=== PATIENT | male | born 1975 | race Two or more races ===

== ENCOUNTER 2017-06-20 20:10 | Emergency (ER) | payer MEDICAID ==
[~2017-06-20] VITALS: Ht 170.2 cm; Wt 83.9 kg
[2017-06-20] MEDS ORDERED: NKM (20:24)
[2017-06-20 20:57] VITALS: BP 118/88
[2017-06-20] MEDS ORDERED: IBUPROFEN600 MG ORAL (21:28)
[2017-06-20 22:00] VITALS: BP 116/88
[2017-06-20 22:01] VITALS: BP 116/88
--- NOTE | 2017-06-20 22:59 | Emergency Room Report ---
History of Present Illness General Chief Complaint: Upper Extremity Injury Source: Patient Present Illness HPI Patient is a 42-year-old male who presented after increased left upper extremity pain and discomfort. 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 Patient was noted to have increased pain to his left wrist as well as his left forearm to the ulnar aspect. The patient states this is worse on the dorsal side. He denies recent trauma. He denies any fever. He denies any prior giles or definite injury. Allergies: Coded Allergies: No Known Allergies (Unverified , 06/20/17) Patient History Past Medical History: see triage record Reviewed Nursing Documentation: PMH: Agreed; PSxH: Agreed Nursing Documentation-PMH Past Medical History: No Stated History Review of Systems All Other Systems: negative except mentioned in HPI Physical Exam Vital Signs Date Time Temp Pulse Resp B/P (MAP) Pulse Ox O2 Delivery O2 Flow Rate FiO2 06/20/17 20:18 98.2 85 16 123/85 97 Room Air 98.2 General Appearance: well appearing, no apparent distress, alert, GCS 15 Head: normocephalic, atraumatic ENT: hearing grossly normal, normal voice Neck: full range of motion, supple Respiratory: no respiratory distress, speaking full sentences Cardiovascular #1: regular rate, rhythm Gastrointestinal: normal inspection, normal bowel sounds, non tender, soft Musculoskeletal: swelling - proximal to left ulnar styloid, no erythema Neurologic: normal gait Psychiatric: mood/affect normal Skin: no rash Medical Decision Making Diagnostic Impression: Primary Impression: Tendonitis ER Course Patient presented for wrist pain. Differential diagnosis included fracture, dislocation, scapphoid fracture, sprain, ganglion cyst, septic joint , arthritis, abscess among others. Wrist Xray was ordered. The x-ray of the left wrist 3 views interpreted by me showed normal bony alignment without evident fracture. The patient was placed in a preform splint. Patient was given ibuprofen for pain. He is advised to remain off of work for 2 days. The patient is advised to recheck with primary care physician in one to 2 days for reexamination. Last Vital Signs Date Time Temp Pulse Resp B/P (MAP) Pulse Ox O2 Delivery O2 Flow Rate FiO2 06/20/17 22:01 98.2 80 18 116/88 97 Room Air 98.2 Status: improved Disposition: HOME, SELF-CARE Condition: Improved Scripts Ibuprofen* (MOTRIN*) 600 Mg Tablet 600 MG ORAL Q8H PRN for For Pain, #30 TAB 0 Refills Prov: Jason Aguilar 06/20/17 Patient Instructions: Jason Burks Jun 20, 2017 22:59
--- NOTE | 2017-06-21 10:08 | Diagnostic Imaging Report ---
Clinical Indication:Wrist pain Technique: 3 views of the left wrist Comparison: None Findings: No acute fractures. No dislocations. The joint spaces are preserved Impression: Negative
== END 2017-06-20 22:02 | disposition home or self-care (01) ==
LOC: EMR 20:37
DX: M77.9 Enthesopathy, unspecified (principal)
CPT/HCPCS: 99284

== ENCOUNTER 2017-08-30 20:37 | Emergency (ER) | payer MEDICAID ==
[~2017-08-30] VITALS: Ht 170.2 cm; Wt 82.1 kg
[~2017-08-30 20:37] MED LIST: IBUPROFEN600 MG ORAL; NKM
--- NOTE | 2017-08-30 20:55 | Emergency Room Report ---
History of Present Illness General Chief Complaint: Lower Extremity Injury Source: Patient Present Illness HPI Patient is a 42-year-old male who presented after increased the pain to his right great toe. The patient had onset of symptoms for approximately 83 days. Patient reports having increased pain with ambulation. He denies recent trauma. He states that he does not have any prior medical history. Pain is sharp in nature. It was worse with ambulation. Allergies: Coded Allergies: No Known Allergies (Unverified , 06/20/17) Patient History Past Medical History: see triage record Reviewed Nursing Documentation: PMH: Agreed; PSxH: Agreed Nursing Documentation-PMH Past Medical History: No Stated History Review of Systems All Other Systems: negative except mentioned in HPI Physical Exam Vital Signs Date Time Temp Pulse Resp B/P (MAP) Pulse Ox O2 Delivery O2 Flow Rate FiO2 08/30/17 20:39 97.8 77 16 122/81 97 Room Air 97.9 General Appearance: well appearing, no apparent distress, alert, GCS 15 Head: normocephalic, atraumatic ENT: hearing grossly normal, normal voice Neck: full range of motion, supple Respiratory: no respiratory distress, speaking full sentences Musculoskeletal: no calf tenderness Neurologic: normal inspection, alert, oriented x3, responsive, on air announcer III-XII nml as tested, normal gait Psychiatric: mood/affect normal Skin: other - right great toe with minimal swelling to medial aspect Medical Decision Making Diagnostic Impression: Primary Impression: Ingrown toenail of right foot with infection Additional Impression: Tinea unguium ER Course Patient presented for toe swelling. Differential diagnosis included was not limited to osteomyelitis, ingrown toenail, cellulitis, abscess among others. Patient has a benign exam and does not appear to require any further imaging or laboratory testing at this time. The patient appears to have some underlying fungal infection. The patient was started on oral antibiotics. The patient is advised podiatry follow-up for reevaluation in the next one to 2 days. Last Vital Signs Date Time Temp Pulse Resp B/P (MAP) Pulse Ox O2 Delivery O2 Flow Rate FiO2 08/30/17 20:39 97.8 77 16 122/81 97 Room Air 97.9 Status: improved Disposition: HOME, SELF-CARE Condition: Stable Jason Aguilar MD Aug 30, 2017 20:55
[2017-08-30] MEDS ORDERED: CEPHALEXIN500 MG ORAL (20:57)
[2017-08-30] MEDS ORDERED: CLOTRIMAZOLE15 GM TOPIC (20:57)
[2017-08-30 21:15] VITALS: BP 122/81
== END 2017-08-30 21:15 | disposition home or self-care (01) ==
LOC: EMR 20:52
DX: L60.0 Ingrowing nail (principal); B35.1 Tinea unguium
CPT/HCPCS: 99283

== ENCOUNTER 2018-02-17 17:39 | Emergency (ER) | payer MEDICAID ==
[~2018-02-17] VITALS: Ht 170.2 cm; Wt 81.6 kg
[~2018-02-17 17:39] MED LIST changes: +CEPHALEXIN500 MG ORAL; +CLOTRIMAZOLE15 GM TOPIC
[2018-02-17 18:10] VITALS: BP 122/65
[2018-02-17 18:16] LABS: BASOPHILS % (AUTO) 1.3 % (0.0-2.0); EOSINOPHILS % (AUTO) 2.7 % (0.0-3.0); HEMATOCRIT 45.4 % (42.0-52.0); HEMOGLOBIN 16.2 G/DL (14.2-18.0); LYMPHOCYTES % (AUTO) 27.8 % (20.0-45.0); MEAN CORPUSCULAR VOLUME 86 FL (80-99); MONOCYTES % (AUTO) 10.1 % (1.0-10.0); PLATELET COUNT 272 K/UL (150-450); RED BLOOD COUNT 5.25 M/UL (4.70-6.10); RED CELL DISTRIBUTION WIDTH 11.5 % (11.6-14.8); WHITE BLOOD COUNT 9.5 K/UL (4.8-10.8)
[2018-02-17 18:40] LABS: ANION GAP 12 mmol/L (5-15); BLOOD UREA NITROGEN 11 mg/dL (7-18); CALCIUM 8.5 MG/DL (8.5-10.1); CARBON DIOXIDE 25 MMOL/L (21-32); CHLORIDE 103 MMOL/L (98-107); POTASSIUM 3.3 MMOL/L (3.5-5.1); SODIUM 140 MMOL/L (136-145)
[2018-02-17 18:44] LABS: ALANINE AMINOTRANSFERASE 29 U/L (12-78); ALBUMIN 3.5 G/DL (3.4-5.0); ALBUMIN/GLOBULIN RATIO 0.7 (1.0-2.7); ALKALINE PHOSPHATASE 90 U/L (46-116); ASPARTATE AMINO TRANSFERASE 25 U/L (15-37); BILIRUBIN,TOTAL 0.8 MG/DL (0.2-1.0)
[2018-02-17] MEDS ORDERED: PEPCID AC20 M2 PO (18:52)
[2018-02-17 19:05] VITALS: BP 106/68
[2018-02-17 19:09] VITALS: BP 106/68
--- NOTE | 2018-02-23 06:58 | Emergency Room Report ---
History of Present Illness General Chief Complaint: Abdominal Pain Source: Patient Present Illness HPI Patient presents with complaints of epigastric abdominal pain Some increased nausea denies any vomiting or diarrhea Denies any chest pain or shortness of breath Patient also reported seeing evidence of red blood in his stool Denies any pain with defecation denies any trauma Patient reports he has seen the blood tinge for over the past one to 2 months Allergies: Coded Allergies: No Known Allergies (Unverified , 06/20/17) Patient History Past Medical History: see triage record Pertinent Family History: none Reviewed Nursing Documentation: PMH: Agreed; PSxH: Agreed Nursing Documentation-PMH Past Medical History: No Stated History Review of Systems All Other Systems: negative except mentioned in HPI Physical Exam 99% on room air which is normal Sp02 EP Interpretation: reviewed, normal General Appearance: well appearing, no apparent distress Head: normocephalic, atraumatic Eyes: bilateral eye PERRL, bilateral eye EOMI ENT: hearing grossly normal, normal pharynx, TMs + canals normal, uvula midline Neck: full range of motion, supple, no meningismus, no bony tend Respiratory: lungs clear, normal breath sounds, no rhonchi, no respiratory distress, no retraction, no accessory muscle use Cardiovascular #1: normal peripheral pulses, regular rate, rhythm, no edema, no gallop, no JVD, no murmur Gastrointestinal: normal bowel sounds, non tender, soft, no mass, no organomegaly, non-distended, no guarding, no hernia, no pulsatile mass, no rebound Genitourinary: no CVA tenderness Musculoskeletal: normal inspection Neurologic: oriented x3, responsive, used car make ready worker III-XII nml as tested, motor strength/ tone normal, sensory intact Psychiatric: mood/affect normal Skin: normal color, no rash, warm/dry, palpation normal Lymphatic: normal inspection, no adenopathy Medical Decision Making Diagnostic Impression: Primary Impression: abdominal pain ER Course With the history exam and presentation, multiple differentials considered, including but not limited to appendicitis, gastritis, cholecystitis, diverticulitis Consideration for GI bleed is also noted Patient's blood work however reveals appropriate hemoglobin Patient does not appear to show signs of active hemorrhage Medical exam is showing a soft and benign abdominal exam Patient was encouraged to follow-up with primary doctor for further GI referral and possible colonoscopy as needed CBC normal Chemistry potassium 3.3 minimally low Status: improved Disposition: HOME, SELF-CARE Condition: Improved Scripts Famotidine (PEPCID AC) 20 Mg Tablet 20 MG PO DAILY, #14 TAB Prov: Ute Soto DO 02/17/18 Referrals: NON PHYSICIAN (PCP) Patient Instructions: Abdominal Pain, Adult Additional Instructions: Patient is provided with the discharge instructions notified to follow up with primary doctor in the next 2-3 days otherwise return to the er with any worsening symptoms. Please note that this report is being documented using [employer] technology. This can lead to erroneous entry secondary to incorrect interpretation by the dictating instrument. Ute Soto DO Feb 23, 2018 06:58
== END 2018-02-17 19:09 | disposition home or self-care (01) ==
LOC: EMR 18:05
DX: R10.9 Unspecified abdominal pain (principal)
CPT/HCPCS: 36415; 80053; 83690; 85025; 99284

== ENCOUNTER 2018-04-06 08:16 | Emergency (ER) | payer MEDICAID ==
[~2018-04-06] VITALS: Ht 170.2 cm; Wt 81.6 kg
[~2018-04-06 08:16] MED LIST changes: +PEPCID AC20 M2 PO
[2018-04-06 08:56] VITALS: BP 120/75
[2018-04-06] MEDS ORDERED: TAMIFLU75 MG ORAL (09:00)
[2018-04-06] MEDS ORDERED: IBUPROFEN600 MG ORAL (09:00)
[2018-04-06 09:14] VITALS: BP 120/75
--- NOTE | 2018-04-08 07:04 | Emergency Room Report ---
History of Present Illness General Chief Complaint: Flu Like Symptoms Source: Patient Present Illness HPI Patient presents with reports of body ache chills Feels that he might have the flu Denies any posterior neck pain or photophobia denies any chest pain patient has a mild cough and nasal congestion Denies any vomiting or diarrhea denies any rash Denies any abdominal pain symptoms ongoing for the past 1-2 days Allergies: Coded Allergies: No Known Allergies (Unverified , 06/20/17) Patient History Past Medical History: see triage record Pertinent Family History: none Reviewed Nursing Documentation: PMH: Agreed; PSxH: Agreed Nursing Documentation-PMH Past Medical History: No Stated History Review of Systems All Other Systems: negative except mentioned in HPI Physical Exam Vital Signs Date Time Temp Pulse Resp B/P (MAP) Pulse Ox O2 Delivery O2 Flow Rate FiO2 04/06/18 08:20 98.4 77 18 120/75 98 Room Air Sp02 EP Interpretation: reviewed, normal General Appearance: well appearing, no apparent distress Head: normocephalic, atraumatic Eyes: bilateral eye PERRL, bilateral eye EOMI ENT: hearing grossly normal, normal pharynx, TMs + canals normal, uvula midline Neck: full range of motion, supple, no meningismus, no bony tend Respiratory: lungs clear, normal breath sounds, no rhonchi, no respiratory distress, no retraction, no accessory muscle use Cardiovascular #1: normal peripheral pulses, regular rate, rhythm, no edema, no gallop, no JVD, no murmur Gastrointestinal: normal bowel sounds, non tender, soft, no mass, no organomegaly, non-distended, no guarding, no hernia, no pulsatile mass, no rebound Genitourinary: no CVA tenderness Musculoskeletal: normal inspection Neurologic: oriented x3, responsive, blow molding machine tender III-XII nml as tested, motor strength/ tone normal, sensory intact Psychiatric: mood/affect normal Skin: normal color, no rash, warm/dry, palpation normal Lymphatic: normal inspection, no adenopathy Medical Decision Making Diagnostic Impression: Primary Impression: Influenza-like symptoms ER Course Given the patient's history exam and presentation appears to be consistent with Flulike symptoms Patient does not appear septic or toxic does not appear ill given the duration of symptoms he is appropriate candidate for Tamiflu And will return with any changes Last Vital Signs Date Time Temp Pulse Resp B/P (MAP) Pulse Ox O2 Delivery O2 Flow Rate FiO2 04/06/18 09:14 98.4 77 18 120/75 98 Room Air Status: improved Disposition: HOME, SELF-CARE Condition: Improved Scripts Ibuprofen* (MOTRIN*) 600 Mg Tablet 600 MG ORAL Q8H PRN for For Pain, #20 TAB 0 Refills Prov: Ute Soto DO 04/06/18 Oseltamivir Phosphate (Tamiflu) 75 Mg Capsule 75 MG ORAL TWICE A DAY for 5 Days, CAP Prov: Ute Soto DO 04/06/18 Referrals: NON PHYSICIAN (PCP) Departure Forms: Return to Work Return to Work in (Days): 2 Return to Work Date: Apr 09, 2018 Patient Instructions: Influenza, Adult, [id number] Additional Instructions: Patient is provided with the discharge instructions notified to follow up with primary doctor in the next 2-3 days otherwise return to the er with any worsening symptoms. Please note that this report is being documented using [employer] technology. This can lead to erroneous entry secondary to incorrect interpretation by the dictating instrument. Ute Soto DO Apr 08, 2018 07:04
== END 2018-04-06 09:15 | disposition home or self-care (01) ==
LOC: EMR 08:54
DX: J11.1 Influenza due to unidentified influenza virus with other respiratory manifestations (principal)
CPT/HCPCS: 99282

== ENCOUNTER 2018-05-28 13:27 | Emergency (ER) | payer MEDICAID ==
[~2018-05-28] VITALS: Ht 167.6 cm; Wt 81.6 kg
[~2018-05-28 13:27] MED LIST changes: +TAMIFLU75 MG ORAL
[2018-05-28 13:45] VITALS: BP 134/75
--- NOTE | 2018-05-28 15:03 | Emergency Room Report ---
History of Present Illness General Chief Complaint: Pain Source: Patient (Madelin Whitman) Present Illness HPI 42-year-old male presents to the emergency department complaining of 7 out of 10 in severity right knee pain and swelling progressive 2 days he denies appreciable trauma or fall. Patient reports pain is exacerbated after walking or standing for too long. Patient denies erythema, warmth, fevers, chills or recent open wounds. He denies history of gout. He denies paresthesias or loss of gross motor movements of the affected extremity. Patient states he does have relief after taking Motrin. (Madelin Whitman) Allergies: Coded Allergies: No Known Allergies (Unverified , 05/28/18) Patient History Past Medical History: see triage record Past Surgical History: none Pertinent Family History: none Reviewed Nursing Documentation: PMH: Agreed; PSxH: Agreed (Madelin Whitman) Nursing Documentation-PMH Past Medical History: No Stated History (Madelin Whitman) Review of Systems All Other Systems: negative except mentioned in HPI (Madelin Whitman) Physical Exam Vital Signs Date Time Temp Pulse Resp B/P (MAP) Pulse Ox O2 Delivery O2 Flow Rate FiO2 05/28/18 13:40 98.1 83 16 117/69 97 05/28/18 13:45 Room Air Sp02 EP Interpretation: reviewed, normal General Appearance: no apparent distress, alert, GCS 15, non-toxic Head: normocephalic, atraumatic Eyes: bilateral eye normal inspection, bilateral eye PERRL ENT: hearing grossly normal, normal voice Neck: full range of motion Respiratory: lungs clear, normal breath sounds, speaking full sentences Cardiovascular #1: regular rate, rhythm, no edema Musculoskeletal: back normal, gait/station normal, normal range of motion, non- tender, tender - anterior ttp, swelling, no increased laxity, FROM with pain, no palpable warmth. Neurologic: alert, oriented x3, responsive, motor strength/tone normal, sensory intact, speech normal, grossly normal Psychiatric: judgement/insight normal Skin: normal color, no rash, warm/dry, well hydrated (Madelin Whitman) Medical Decision Making PA Attestation Dr. Lopez is my supervising Physician whom patient management has been discussed with. (Madelin Whitman) Diagnostic Impression: Primary Impression: Knee pain, right Qualified Codes: M25.561 - Pain in right knee ER Course 42-year-old male presents to the emergency department complaining of 7 out of 10 in severity right knee pain and swelling progressive 2 days he denies appreciable trauma or fall. Patient reports pain is exacerbated after walking or standing for too long. Patient denies erythema, warmth, fevers, chills or recent open wounds. He denies history of gout. He denies paresthesias or loss of gross motor movements of the affected extremity. Patient states he does have relief after taking Motrin. Ddx considered but are not limited to Fracture, dislocation, contusion, septic joint, pseudo gout, gout, cellulitis, effusion , Sprain/Strain/Spasm, ligamental injury just to name a few. Vital signs: are WNL, pt. is afebrile H&PE are most consistent with knee strain/ overuse. ORDERS: X-ray Right knee complete 3 view - negative for fx, Dislocation, or significant soft tissue injury ED INTERVENTIONS: - Akhil wrap applied by emergency veterinary technician. --Patient is provided with crutches and instructed on their use -I do not identify an emergent condition at this time. With current presentation , pt. is stable for close outpatient follow up and conservative treatment. D/ w pt. to return promptly to ED with worsening or new symptoms.- Pt. verbalizes' understanding and agreement with proposed treatment plan.proposed treatment plan. DISCHARGE: At this time pt. is stable for d/c to home. Will provide printed patient care instructions, and any necessary prescriptions. Care plan and follow up instructions have been discussed with the patient prior to discharge. (Madelin Whitman) Other X-Ray Diagnostic Results Other X-Ray Diagnostic Results : X-Ray ordered: Right knee # of Views/Limited Vs Complete: 3 View Indication: Pain EP Interpretation: Yes PA Xray: Interpretation reviewed, by supervising MD, and agrees with findings. Interpretation: no dislocation, no soft tissue swelling, no fractures, other - non acute bone fragment noted posteriorly Impression: Other - abnormal Electronically Signed by: Madelin Whitman PA-C (Madelin Whitman) Other X-Ray Diagnostic Results : Electronically Signed by: Vinicius Barajas documentation of Xray reviewed by me and is accurate, Oswaldo Lopez MD (Oswaldo Lopez MD) Last Vital Signs Date Time Temp Pulse Resp B/P (MAP) Pulse Ox O2 Delivery O2 Flow Rate FiO2 05/28/18 13:45 98.0 64 18 134/75 100 Room Air Status: improved (Madelin Whitman) Disposition: HOME, SELF-CARE Condition: Stable Scripts Ibuprofen* (MOTRIN*) 600 Mg Tablet 600 MG ORAL THREE TIMES A DAY, #30 TAB 0 Refills Prov: Madelin Whitman 05/28/18 Referrals: NOT CHOSEN IPA/MD,REFERRING (PCP) Patient Instructions: Knee Effusion, [id number] Additional Instructions: Take medications as directed. Follow up with an BIOLOGY TEACHER in 3-5 days, even if your symptoms have resolved. If symptoms persist MRI may be required at the discretion of your PCP or Ortho Specialist. --Please review list of primary care clinics, if you do not already have a primary care provider who can give you an Orthopedic Referral. Return sooner to ED if new symptoms occur, or current symptoms become worse. Do not drink alcohol, drive, or operate heavy machinery while taking [place] as this may cause drowsiness. - Please note that this Emergency Department Report was dictated using [employer]group dynamics instructor technology software, occasionally this can lead to erroneous entry secondary to interpretation by the dictation equipment. Madelin Whitman May 28, 2018 15:02 Oswaldo Lopez MD May 29, 2018 04:36
[2018-05-28] MEDS ORDERED: IBUPROFEN600 MG ORAL (15:08)
[2018-05-28 15:16] VITALS: BP 135/65
--- NOTE | 2018-05-28 15:17 | Diagnostic Imaging Report ---
Indication: Knee pain Technique: 3 views of the left knee Comparison: None Findings: Normal bony alignment. No acute fractures. No dislocations. No suprapatellar effusion. The joint spaces are preserved Impression: Negative
--- NOTE | 2018-05-28 15:18 | NUR ---
ER DISCHARGE NOTE: Patient is cleared to be discharged per ERMD, pt is aox4, on room air, with stable vital signs. pt was given dc and prescription instructions, pt was able to verbalize understanding, pt id band removed. pt is able to ambulate with steady gait. pt took all belongings. right knee RUDI wrap was applyed. patient refused to have crutches.
== END 2018-05-28 15:20 | disposition home or self-care (01) ==
LOC: EMR 14:20
DX: M25.561 Pain in right knee (principal)
CPT/HCPCS: 99283

== ENCOUNTER 2018-11-14 08:46 | Emergency (ER) | payer MEDICAID ==
[~2018-11-14] VITALS: Ht 170.2 cm; Wt 76.2 kg
[2018-11-14 08:56] VITALS: BP 116/74
--- NOTE | 2018-11-14 08:57 | NUR ---
ED Nurse Note: Patient walked in to ER from home due to left knee pain 09/03. AAO x4, VSS at this time, skin is dry warm to touch.
--- NOTE | 2018-11-14 08:59 | Emergency Room Report ---
History of Present Illness General Chief Complaint: Pain Source: Patient Present Illness HPI Patient is a 43-year-old male who presented after increased left knee pain. Patient reports having onset of symptoms yesterday. He reports having no recent injuries. He denies prior knee pain. He denies recent trauma. Pain is worse with movements. He had not been having any fever. He reports regular alcohol intake. He denies any prior history of gout. He had not been having any visual changes or change in urination. Allergies: Coded Allergies: No Known Allergies (Unverified , 05/28/18) Patient History Past Medical History: see triage record Reviewed Nursing Documentation: PMH: Agreed; PSxH: Agreed Nursing Documentation-PMH Past Medical History: No Stated History Review of Systems All Other Systems: negative except mentioned in HPI Physical Exam Vital Signs Date Time Temp Pulse Resp B/P (MAP) Pulse Ox O2 Delivery O2 Flow Rate FiO2 11/14/18 08:50 98.1 77 20 116/74 (88) 98 Room Air General Appearance: well appearing, no apparent distress, alert, GCS 15, Chronically Ill Head: normocephalic, atraumatic ENT: hearing grossly normal, normal voice Neck: full range of motion, supple Respiratory: no respiratory distress, speaking full sentences Musculoskeletal: no calf tenderness, swelling - left knee no ligamentous laxity , slight prepatellar swelling, no crepitance or warmth Neurologic: normal gait Psychiatric: mood/affect normal Skin: no rash Medical Decision Making Diagnostic Impression: Primary Impression: Arthritis ER Course The patient presents with left knee pain of uncertain etiology. Differential diagnosis included but was not limited to arthritis, bursitis, septic joint, ligamentous injury among others. Xray imaging was ordered due to patients complexity. laboratory testing showed normal uric acid level. Findings: No suprapatellar effusion. No acute fracture. No dislocation. The joint spaces are preserved. There is suggestion of varicose veins medially. Impression: No acute process There is no evidence for an infectious process at this time. I also see no evidence for bony injury or neurovascular compromise. Ligaments are stable. Patient was given NSAID with improvement. Patient appears to have left knee bursitis. He was given prescription for NSAIDS. Patient was advised to follow up with primary care physician. Patient to return if worse or any concerns. Last Vital Signs Date Time Temp Pulse Resp B/P (MAP) Pulse Ox O2 Delivery O2 Flow Rate FiO2 11/14/18 08:56 98.1 20 116/74 98 Room Air 11/14/18 08:50 77 Status: improved Disposition: HOME, SELF-CARE Condition: Stable Scripts Ibuprofen* (MOTRIN*) 600 Mg Tablet 600 MG ORAL Q8H PRN for For Pain, #30 TAB 0 Refills Prov: Jason Aguilar MD 11/14/18 Jason Aguilar MD Nov 14, 2018 08:59
[2018-11-14] MEDS ORDERED: Indomethacin 75 MG CAPSULE.ER ORAL ONE (09:00)
--- NOTE | 2018-11-14 09:39 | Diagnostic Imaging Report ---
Indication: Left knee pain Technique: 3 views of the left knee Comparison: None Findings: No suprapatellar effusion. No acute fracture. No dislocation. The joint spaces are preserved. There is suggestion of varicose veins medially. Impression: No acute process
[2018-11-14] MEDS ORDERED: IBUPROFEN600 MG ORAL (10:41)
[2018-11-14 10:53] VITALS: BP 116/74
--- NOTE | 2018-11-14 10:54 | NUR ---
ED Nurse Note: Pt cleared by health care Provider for discharge. DC instructions/prescription was given and explained to pt and verbalized understanding of teachings. All medical deviecs such as ID band removed. Pt is AAO x4, ambulatory and left with all personal belongings.
== END 2018-11-14 10:54 | disposition home or self-care (01) ==
LOC: EMR 08:50
DX: M13.862 Other specified arthritis, left knee (principal)
CPT/HCPCS: 36415; 84550; 99283

== ENCOUNTER 2019-05-21 08:27 | Emergency (ER) | payer MEDICAID ==
[~2019-05-21] VITALS: Ht 170.2 cm; Wt 76.2 kg
[2019-05-21 08:49] VITALS: BP 120/62
[2019-05-21] MEDS ORDERED: IBUPROFEN600 MG ORAL ×3 (08:49→09:37)
[2019-05-21] MEDS ORDERED: PREDNISONE20 MG ORAL ×3 (08:49→09:37)
--- NOTE | 2019-05-21 08:50 | NUR ---
ED Nurse Note:pt. came with sore throat, cough for 2 days
--- NOTE | 2019-05-21 08:54 | Emergency Room Report ---
History of Present Illness General Chief Complaint: Sore Throat Source: Patient Present Illness HPI Disclaimer: Please note that this report is being documented using [employer] technology. This can lead to erroneous entry secondary to incorrect interpretation by the dictating instrument. HPI: 43-year-old male with no reported medical history presents for evaluation of sore throat. Symptoms began yesterday. He notes a worsening sore throat and pain with swallowing over the past 24 hours. Pain is increasing. Denies fevers, chills, nasal congestion. He feels swollen nodes in his neck. Reports an nonproductive and intermittent cough for the past few days as well. Denies fevers, chills, abdominal pain, vomiting or diarrhea. No known sick contacts. PMH: Denies PSH: Denies Allergies: Denies Social Hx: Non-smoker Allergies: Coded Allergies: No Known Allergies (Unverified , 05/28/18) Nursing Documentation-PMH Past Medical History: No Stated History Review of Systems All Other Systems: negative except mentioned in HPI Physical Exam Vital Signs Date Time Temp Pulse Resp B/P (MAP) Pulse Ox O2 Delivery O2 Flow Rate FiO2 05/21/19 08:33 98.2 77 17 120/62 (81) 99 Room Air General: Awake and alert, no acute distress HEENT: NC/AT. EOMI. uvula is midline. Tonsils are 3+ and erythematous. No significant edema appreciated. No exudate. Neck: Trachea midline. Mild anterior lymphadenopathy. Resp: Normal work of breathing, no cough, no wheezing, no crackles during exam Skin: Intact. No abrasions, laceration or rash over the exposed skin MSK: Normal tone and bulk. Moving all extremities. No obvious deformity. Neuro: Awake and alert. Mentating appropriately Medical Decision Making Diagnostic Impression: Primary Impression: Pharyngitis ER Course This a 43-year-old male presenting for evaluation of 1 day sore throat. His throat is erythematous but no edema or exudate of found. He has some anterior lymphadenopathy and a cough for the past few days as well. Lungs are clear. Do not believe he requires emergent labs or imaging at this time. This is likely a viral syndrome and should resolve over the next few days. Given his age and physical exam findings he is low risk for streptococcal pharyngitis. Do not believe he requires testing or antibiotics at this time. Will treat symptomatically with steroids for swelling and pain as well as NSAIDs. We will follow-up with clinic. Advised him to return to the emergency department if symptoms fail to improve over the next few days. He understands and agrees with this treatment plan will be discharged home. Last Vital Signs Date Time Temp Pulse Resp B/P (MAP) Pulse Ox O2 Delivery O2 Flow Rate FiO2 05/21/19 08:49 98.2 68 17 120/62 99 Room Air Disposition: HOME, SELF-CARE Condition: Stable Scripts Prednisone* (PREDNISONE*) 20 Mg Tablet 40 MG ORAL DAILY for 3 Days, #6 TAB Prov: Mauricio Palomo MD 05/21/19 Ibuprofen* (MOTRIN*) 600 Mg Tablet 600 MG ORAL Q8H PRN for For Pain, #30 TAB 0 Refills Prov: Mauricio Palomo MD 05/21/19 Referrals: [facility] Patient Instructions: Sore Throat Additional Instructions: Take the medications as prescribed. Please follow-up with your primary care doctor in the next 1 to 3 days to discuss this emergency department visit and for reevaluation. If you have any new or worsening symptoms please return to the emergency department for reevaluation. Please note that this report is being documented using [employer] technology. This can lead to erroneous entry secondary to incorrect interpretation by the dictating instrument. Mauricio Palomo MD May 21, 2019 08:53
[2019-05-21 09:00] VITALS: BP 120/62
--- NOTE | 2019-05-21 09:00 | NUR ---
ER DISCHARGE NOTE: Patient is cleared to be discharged per ERMD, pt is aox4, on room air, with stable vital signs. pt was given dc and prescription instructions, pt was able to verbalize understanding, pt is able to ambulate with steady gait. pt took all belongings.
== END 2019-05-21 09:15 | disposition home or self-care (01) ==
LOC: EMR 08:50
DX: J02.9 Acute pharyngitis, unspecified (principal)
CPT/HCPCS: J7512; Z7502; 99282